=== PATIENT | female | born 1950 | race Caucasian/White ===

== ENCOUNTER → 2016-08-22 | Outpatient (CLI) | payer MEDICARE ==
[2013-08-04 09:14] VITALS: BP 118/63
[~2016-08-22] MED LIST: ACET650T89 PO; AZAT50TA PO; CYCL1DRO OP; GLIP2.5T4 PO; LISI2.5T PO; MELO7.5O PO; MULT-658 PO; PANT40TA5 PO; PILO5TAB16 PO; SITA100T PO; TRIA1CAP3 PO
--- NOTE | 2016-08-22 09:46 | KCIC ---
Indication: Acute renal failure. The right kidney measures 10.6 x 5.5 x 5.4 cm and the left kidney measures 10.7 x 4.3 x 4.9 cm. The cortical thickness and echogenicity is normal. No calculi are seen. There is no hydronephrosis. The aorta is nonaneurysmal. The IVC and bladder are unremarkable. Resistive indices are normal bilaterally measuring 0.7 on both the right and left. IMPRESSION: Unremarkable renal ultrasound. Electronically signed by: Kaleb Nunez MD (08/22/2016 9:43 AM) [id number]
== END | disposition home or self-care (01) ==
LOC: KCIC US 09:01
PROVIDERS: ATTEND Internal Medicine Nephrology
DX: N17.9 Acute kidney failure, unspecified (principal)
CPT/HCPCS: 76770

== ENCOUNTER → 2017-03-20 | Outpatient (CLI) | payer MEDICARE ==
[2017-03-20 09:09] LABS: ISTAT CREATININE 0.7 mg/dL (0.6-1.1)
[2017-03-20] MEDS: GADOBUTROL 10 MMOL/10 ML VIAL IV ×2 (09:41)
== END | disposition home or self-care (01) ==
LOC: KCIC MRI 08:38
DX: H53.2 Diplopia (principal)
CPT/HCPCS: 70553; 82565; A9585

== ENCOUNTER → 2017-04-25 | Outpatient (CLI) | payer MEDICARE | END | disposition home or self-care (01) | LOC: KCIC 08:11 | DX: M17.0 Bilateral primary osteoarthritis of knee (principal); M25.762 Osteophyte, left knee; M20.11 Hallux valgus (acquired), right foot; M47.892 Other spondylosis, cervical region; M53.82 Other specified dorsopathies, cervical region; M77.8 Other enthesopathies, not elsewhere classified | CPT/HCPCS: 72020; 72170; 73120; 73560; 73620 ==

== ENCOUNTER → 2017-05-23 | Outpatient (CLI) | payer MEDICARE | END | disposition home or self-care (01) | LOC: KCIC 12:26 | DX: J18.9 Pneumonia, unspecified organism (principal) | CPT/HCPCS: 71046 ==

== ENCOUNTER → 2018-01-26 | Outpatient (CLI) | payer MEDICARE ==
[2013-08-04 09:14] VITALS: BP 118/63
[~2018-01-26] MED LIST changes: +TOFA5TAB PO
--- NOTE | 2018-01-27 11:05 | KCIC ---
MR of the left knee Indication: Left knee pain, popping with position changes. Pain is progressing, just below the joint line and posterior. Comparison: None are available. Technique: The standard multiplanar sequences are obtained. FINDINGS: Artifact: Mild motion to moderate motion degradation. Medial meniscus: Degenerative tear Lateral meniscus: Posterior horn tear. Anterior cruciate ligament: Poorly visualized, to some degree may be due to the motion but a tear is still suspected. Lack of acute edema or Pivot shift bone injuries suggest this is not acute. Posterior cruciate ligament: Intact Medial collateral ligament: Intact. Lateral structures: * Iliotibial band: Intact. * Lateral collateral ligament: Intact. * Biceps femoris tendon: Intact * Popliteus tendon attachment: Intact Extensive mechanism: * Patellar tendon: Intact * Quadriceps tendon: Intact * Retinacular structures: Intact Fluid: Moderate joint effusion. No significant Ott's cyst. Intra-articular bodies: None visualized Joint compartments * patellofemoral joint: Moderate chondromalacia of the patella. * medial compartment: Moderate to severe chondral thinning. * lateral compartment: Mild chondromalacia. Bones: No significant lesion or acute fracture. Soft tissue: Unremarkable Impression: 1. Medial meniscal tear. 2. Lateral meniscal tear. 3. Poorly visualized anterior cruciate ligament, motion degradation may make visualization difficult, but a chronic tear is still suspected, particularly if there is clinical instability. Electronically signed by: Jerry Curry MD (01/27/2018 11:01 AM) [facility]-KCIC2
== END | disposition home or self-care (01) ==
LOC: KCIC MRI 16:38
PROVIDERS: ATTEND Nurse Practitioner Family
DX: S83.242A Other tear of medial meniscus, current injury, left knee, initial encounter (principal); S83.282A Other tear of lateral meniscus, current injury, left knee, initial encounter; M22.42 Chondromalacia patellae, left knee; M25.462 Effusion, left knee; X58.XXXA Exposure to other specified factors, initial encounter; Y93.89 Activity, other specified; Y92.89 Other specified places as the place of occurrence of the external cause; Y99.8 Other external cause status
CPT/HCPCS: 73721

== ENCOUNTER → 2018-06-12 | Outpatient (CLI) | payer MEDICARE ==
[2013-08-04 09:14] VITALS: BP 118/63
--- NOTE | 2018-06-12 10:11 | KCIC ---
Chest, PA and Lateral: Technique: PA and lateral views of the chest were obtained. History: Pneumonia. Comparison: 05/23/2017. Findings: The heart and pulmonary vasculature appear within normal limits. Linear left midlung zone atelectasis or infiltrate.. The pleural margins are clear. Mild degenerative changes thoracic spine. Impression: Minimal left lung midlung atelectasis or scarring similar to prior exam. Electronically signed by: Venkata Montez MD (06/12/2018 10:07 AM) [facility]
== END | disposition home or self-care (01) ==
LOC: KCIC 08:47
PROVIDERS: ATTEND Nurse Practitioner Family
DX: J18.9 Pneumonia, unspecified organism (principal); M47.814 Spondylosis without myelopathy or radiculopathy, thoracic region
CPT/HCPCS: 71046

== ENCOUNTER → 2019-03-18 | Outpatient (CLI) | payer MEDICARE ==
[2013-08-04 09:14] VITALS: BP 118/63
[~2019-03-18] MED LIST changes: -PANT40TA5 PO; +PANT40TA77 PO
--- NOTE | 2019-03-18 17:03 | KCIC ---
EXAM: Neck sonogram. HISTORY: Palpable lump within the left posterior inferior scalp. TECHNIQUE: Sonographic imaging of the scalp with the site of palpable concern was performed. COMPARISON: None. FINDINGS: There is no suspicious finding within the left scalp at the site of concern. IMPRESSION: No suspicious sonographic finding at the site of palpable concern. Cross-sectional imaging may be performed if there is concern for a sonographically occult lesion. Electronically signed by: Cyndi Michaud MD (03/18/2019 5:00 PM) [facility] [place]
== END | disposition home or self-care (01) ==
LOC: KCIC US 14:34
PROVIDERS: ATTEND Nurse Practitioner Family
DX: L72.8 Other follicular cysts of the skin and subcutaneous tissue (principal)
CPT/HCPCS: 76536

== ENCOUNTER 2019-12-18 17:17 | Emergency (ER) | payer MEDICARE ==
[~2019-12-18] VITALS: Ht 157.5 cm; Wt 108.1 kg
--- NOTE | 2019-12-18 18:20 | PHYS DOC ---
Past Medical History Past Medical History: Diabetes-Type II, GERD, Hypertension, Pneumonia, Other Additional Past Medical Histor: sepsis, rheumatoid arthritis Past Surgical History: Cholecystectomy, , Other Additional Past Surgical Histo: hernia repair x3 Smoking Status: Former Smoker Additional Information: quit smoking 2004 Alcohol Use: None General Adult EDM: Chief Complaint: HYPOTENSION HPI: HPI: Patient is a 69 year old female who arrives with a chief complaint of hypotension. Patient was recently admitted to this [facility] for pneumonia. Patient at that time had her blood pressure medications adjusted. Today after going to the bathroom she stood up and had a near syncope event. Patient was found to have low blood pressure. Patient feels much better now. Patient denies any pain at this time. Patient denies any fever, chills, vomiting or diarrhea or blood in her stool. Patient's cough is much improved. Review of Systems: Review of Systems: Constitutional: Denies fever or chills. [] Eyes: Denies change in visual acuity. [] HENT: Denies nasal congestion or sore throat. [] Respiratory: Denies cough or shortness of breath. [] Cardiovascular: Denies chest pain or edema. [] GI: Denies abdominal pain, nausea, vomiting, bloody stools or diarrhea. [] : Denies dysuria. [] Musculoskeletal: Denies back pain or joint pain. [] Integument: Denies rash. [] Neurologic: Denies headache, focal weakness or sensory changes. [] Endocrine: Denies polyuria or polydipsia. [] Lymphatic: Denies swollen glands. [] Psychiatric: Denies depression or anxiety. [] Heart Score: Risk Factors: Risk Factors: DM, Current or recent (<one month) smoker, HTN, HLP, family history of CAD, obesity. Risk Scores: Score 0 - 3: 2.5% MACE over next 6 weeks - Discharge Home Score 4 - 6: 20.3% MACE over next 6 weeks - Admit for Clinical Observation Score 7 - 10: 72.7% MACE over next 6 weeks - Early Invasive Strategies Current Medications: Current Medications Sodium Chloride 500 ml @ 500 mls/hr 1X ONCE IV Last administered on 12/18/19at 19:18; Start 12/18/19 at 19:15; Stop 12/18/19 at 20:14 Active Scripts Active Reported Xeljanz (Tofacitinib Citrate) 5 Mg Tablet 5 Mg PO Arthritis Pain (Acetaminophen) 650 Mg Tablet.er 650 Mg PO BID Restasis (Cyclosporine) 1 Each Droperette 1 Each OP BID Centrum Silver Tablet (Multivits-Min/Fa/Lycopene/Lut) 1 Each Tablet 1 Each PO DAILY08 Glipizide Er (Glipizide) 2.5 Mg Tab.er.24 2.5 Mg PO QID Januvia (Sitagliptin Phosphate) 100 Mg Tablet 100 Mg PO DAILY08 Lisinopril 2.5 Mg Tablet 2.5 Mg PO DAILY08 Pilocarpine Hcl 5 Mg Tablet 5 Mg PO TID Triamterene-Hctz 37.5-25 Mg Cp (Triamterene/Hydrochlorothiazid) 1 Each Capsule 2 Cap PO DAILY08 Pantoprazole Sodium 40 Mg Tablet.dr 40 Mg PO DAILY08 Meloxicam 7.5 Mg/5 Ml Oral.susp 7.5 Mg PO DAILY08 Azathioprine 50 Mg Tablet 50 Mg PO BID Allergies: Allergies: Allergies Coded Allergies Type Severity Reaction Last Updated Verified No Known Drug Allergies 12/18/19 No Physical Exam: PE: Constitutional: Well developed, well nourished, no acute distress, non-toxic appearance. [] HENT: Normocephalic, atraumatic, bilateral external ears normal, NO TRISMUS nose normal. [] Eyes: PERRLA, EOMI, conjunctiva normal, no discharge. [] Neck: Normal range of motion, no tenderness, supple, no stridor. [] Cardiovascular:Heart rate regular rhythm, PERIPHERAL PULSES INTACT Lungs & Thorax: Bilateral breath sounds clear, NO RESPIRATORY DISTRESS Abdomen:soft, no tenderness, no masses, no pulsatile masses. [] Skin: Warm, dry, no erythema, no rash. [] Back: No tenderness, no CVA tenderness. [] Extremities: No tenderness, no cyanosis, no clubbing, ROM intact, no edema. [] Neurologic: Alert and oriented X 3, normal motor function, normal sensory function, no focal deficits noted. [] Psychologic: Affect normal, judgement normal, mood normal. [] Current Patient Data: Labs: Laboratory Tests Test 12/18/19 18:20 White Blood Count 12.2 x10^3/uL Red Blood Count 4.49 x10^6/uL Hemoglobin 13.2 g/dL Hematocrit 40.3 % Mean Corpuscular Volume 90 fL Mean Corpuscular Hemoglobin 29 pg Mean Corpuscular Hemoglobin Concent 33 g/dL Red Cell Distribution Width 14.6 % Platelet Count 483 x10^3/uL Neutrophils (%) (Auto) 75 % Lymphocytes (%) (Auto) 15 % Monocytes (%) (Auto) 9 % Eosinophils (%) (Auto) 1 % Basophils (%) (Auto) 1 % Neutrophils # (Auto) 9.2 x10^3/uL Lymphocytes # (Auto) 1.8 x10^3/uL Monocytes # (Auto) 1.0 x10^3/uL Eosinophils # (Auto) 0.1 x10^3/uL Basophils # (Auto) 0.1 x10^3/uL Prothrombin Time 14.1 SEC Prothromb Time International Ratio 1.1 Activated Partial Thromboplast Time 27 SEC Sodium Level 133 mmol/L Potassium Level 4.4 mmol/L Chloride Level 98 mmol/L Carbon Dioxide Level 26 mmol/L Anion Gap 9 Blood Urea Nitrogen 40 mg/dL Creatinine 1.8 mg/dL Estimated GFR (Cockcroft-Gault) 27.9 BUN/Creatinine Ratio 22 Glucose Level 323 mg/dL Calcium Level 9.3 mg/dL Total Bilirubin 0.3 mg/dL Aspartate Amino Transf (AST/SGOT) 44 U/L Alanine Aminotransferase (ALT/SGPT) 58 U/L Alkaline Phosphatase 52 U/L Troponin I Quantitative < 0.017 ng/mL Total Protein 7.2 g/dL Albumin 3.0 g/dL Albumin/Globulin Ratio 0.7 Current Medications Medications (Trade) Dose Ordered Sig/Anam Route PRN Reason Start Time Stop Time Status Last Admin Dose Admin Sodium Chloride 500 ml @ 500 mls/hr 1X ONCE IV 12/18/19 19:15 12/18/19 20:14 12/18/19 19:18 Vital Signs: Vital Signs Date Time Temp Pulse Resp B/P (MAP) Pulse Ox O2 Delivery O2 Flow Rate FiO2 12/18/19 17:17 98.7 68 20 123/58 (79) 92 Room Air 98.7 EKG: EKG: EKG interpreted by me normal sinus rhythm with rate of 67 normal axis normal intervals normal ST segments [] Radiology/Procedures: Radiology/Procedures: [][facility] [address] [place] [address] IMAGING REPORT Signed PATIENT: URBAN RIVERA ACCOUNT: [id number] : 1950 LOCATION: ER AGE: 69 SEX: F EXAM STATUS: PRE ER ORD. PHYSICIAN: RAJEEV OTERO MD REASON: SYNCOPE 2 PROCEDURE: PORTABLE CHEST 1V EXAM: AP View of the chest DATE: 12/18/2019 6:02 PM INDICATION: Reason: SYNCOPE 2 / Spl. Instructions: / History: COMPARISON: 06/12/2018 FINDINGS: Heart is mildly enlarged. Aorta is tortuous with atherosclerotic calcifications. Linear opacities left midlung likely scarring/atelectasis, grossly unchanged. No pleural effusion or pneumothorax. IMPRESSION: 1. No radiographic evidence for acute cardiopulmonary process. Electronically signed by: Saman Zacarias MD (12/18/2019 6:38 PM) [facility] DICTATED and SIGNED BY: SAMAN ZACARIAS MD DATE: 12/18/19 183 Course & Med Decision Making: Course & Med Decision Making Pertinent Labs and Imaging studies reviewed. (See chart for details) [] 69-year-old female presents with near syncopal episode. Patient most likely had this episode due to recent change in blood pressure medicines and dehydration as she is got some acute minor renal insufficiency. Patient feels much better after fluids in the ER. Patient blood pressure stabilized. Patient feels like she is well enough and would like to go home. On reassessment she is clinically well and ambulates well. Taylor Disclaimer: Taylor Disclaimer: This electronic medical record was generated, in whole or in part, using a voice recognition dictation system. Departure Departure Impression: Primary Impression: Near syncope Disposition: 01 DC HOME SELF CARE/HOMELESS Condition: STABLE Referrals: SANA KIM APRN (PCP) 2-3 DAYS Patient Instructions: Syncope Additional Instructions: EMERGENCY DEPARTMENT GENERAL DISCHARGE INSTRUCTIONS THANK YOU for coming to [facility] Emergency Department (ED) today and trusting us with your care. We trust that you had a positive experience in our Emergency Department. If you wish to speak to the department Management you can contact the fire department marine engineer at . YOUR FOLLOW UP INSTRUCTIONS ARE FOLLOWS: Do you have a private doctor? If you do not have a private doctor, please ask for a resource list of physicians or clinics that may be able to assist you with follow up care. The Emergency Physician has interpreted your x-rays. The X-ray specialist will also review them. If there is a change in the findings you will be notified in 48 hours when at all possible. A lab test or lab culture may have been done, your results will be reviewed and you will be notified if you need a change in treatment. ADDITIONAL INSTRUCTIONS AND INFORMATION Your care today has been supervised by a physician who is specially trained in emergency care. Many problems require more than one evaluation for a complete diagnosis an d treatment. We recommend that you schedule your follow up appointment as recommended to ensure complete treatment of your illness or injury. If you are unable to obtain follow up care and continue to have a problem, or if your condition worsens we recommend that you return to the ED. We are not able to safely determine your condition over the phone nor are we able to give sound medical advice over the phone. For these safety reasons, if you call for medical advice we will ask you to come to the ED for further evaluation If you have any questions regarding these discharge instructions please call the ED at . SAFETY INFORMATION In the interest of safety, wellness, and injury prevention; we encourage you to wear your seatbelt, if you smoke; quit smoking, and we encourage your family to use protective helmet for bicycling and other sporting events that present an increased risk for head injury. IF YOUR SYMPTOMS WORSEN OR NEW SYMPTOMS DEVELOP, OR YOU HAVE CONCERNS ABOUT YOUR CONDITION; OR IF YOUR CONDITION WORSENS WHILE YOU ARE WAITING FOR YOUR FOLLOW UP APPOINTMENT; EITHER CONTACT YOUR PRIMARY CARE DOCTOR, THE PHYSICIAN WHOSE NAME AND NUMBER YOU WERE GIVEN, OR RETURN TO THE ED IMMEDIATELY. RAJEEV OTERO MD Dec 18, 2019 18:20
[2019-12-18 18:40] LABS: BASO # 0.1 x10^3/uL (0.0-0.2); BASO % 1 % (0-3); EOS # 0.1 x10^3/uL (0.0-0.7); EOS % 1 % (0-3); HEMATOCRIT 40.3 % (36.0-47.0); HEMOGLOBIN 13.2 g/dL (12.0-15.5); LYMPH # 1.8 x10^3/uL (1.0-4.8); LYMPH % 15 % (24-48); MEAN CORPUSCULAR HEMOGLOBIN 29 pg (25-35); MEAN CORPUSCULAR HGB CONC 33 g/dL (31-37); MEAN CORPUSCULAR VOLUME 90 fL (79-100); MONO % 9 % (0-9); NEUT # 9.2 x10^3/uL (1.8-7.7); NEUT % 75 % (31-73); PLATELET COUNT 483 x10^3/uL (140-400); RED BLOOD COUNT 4.49 x10^6/uL (3.50-5.40); RED CELL DISTRIBUTION WIDTH 14.6 % (11.5-14.5); WHITE BLOOD COUNT 12.2 x10^3/uL (4.0-11.0)
--- NOTE | 2019-12-18 18:41 | RAD ---
EXAM: AP View of the chest DATE: 12/18/2019 6:02 PM INDICATION: Reason: SYNCOPE 2 / Spl. Instructions: / History: COMPARISON: 06/12/2018 FINDINGS: Heart is mildly enlarged. Aorta is tortuous with atherosclerotic calcifications. Linear opacities left midlung likely scarring/atelectasis, grossly unchanged. No pleural effusion or pneumothorax. IMPRESSION: 1. No radiographic evidence for acute cardiopulmonary process. Electronically signed by: Saman Garcia MD (12/18/2019 6:38 PM) [facility]
--- NOTE | 2019-12-18 18:41 | EKG ---
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
[2019-12-18 18:42] LABS: CALCIUM 9.3 mg/dL (8.5-10.1); CREATININE 1.8 mg/dL (0.6-1.0); GFR 27.9; POTASSIUM 4.4 mmol/L (3.5-5.1)
[2019-12-18 18:46] LABS: PROTHROMBIN TIME PATIENT 14.1 SEC (11.7-14.0)
[2019-12-18 18:48] LABS: ALBUMIN/GLOBULIN RATIO 0.7 (1.0-1.7); TOTAL BILIRUBIN 0.3 mg/dL (0.2-1.0); TOTAL PROTEIN 7.2 g/dL (6.4-8.2)
[2019-12-18] MEDS ORDERED: IV NORMAL SALINE 500ML BAG 500 ML IV ONE (19:15)
[2019-12-18 20:15] VITALS: BP 125/55
== END 2019-12-18 20:23 | disposition home or self-care (01) ==
LOC: ER 17:17
DX: R55 Syncope and collapse (principal); I95.9 Hypotension, unspecified; E86.0 Dehydration; E11.9 Type 2 diabetes mellitus without complications; K21.9 Gastro-esophageal reflux disease without esophagitis; I10 Essential (primary) hypertension; Z90.49 Acquired absence of other specified parts of digestive tract; Z98.890 Other specified postprocedural states; Z87.891 Personal history of nicotine dependence
CPT/HCPCS: 36415; 71045; 80053; 84484; 85025; 85610; 85730; 93005; 96360; 99285; J7040

== ENCOUNTER → 2020-01-18 | Outpatient (CLI) | payer MEDICARE ==
--- NOTE | 2020-01-18 11:47 | KCIC ---
EXAM: CT CHEST WITHOUT CONTRAST HISTORY: Pneumonia COMPARISON: Chest radiograph 12/18/2019 TECHNIQUE: Helical CT of the chest performed without contrast. Coronal and sagittal reformats were obtained. One or more of the following individualized dose reduction techniques were utilized for this examination: 1. Automated exposure control 2. Adjustment of the mA and/or kV according to patient size 3. Use of iterative reconstruction technique. FINDINGS: Thyroid gland and thoracic inlet: Visualized portion of the right thyroid lobe is enlarged and heterogeneous with probable 2.5 cm hypodense lesion. This is incompletely visualized. Heart and great vessels: Heart is normal in size. There are coronary artery calcifications. No pleural effusion. The thoracic aorta is normal in caliber. Mild calcified aortic atherosclerosis. Mediastinum and nils: No mediastinal or hilar lymphadenopathy. Lungs and pleura: There is mild air trapping. There are a few cystic changes in the right apex. There is are scattered bandlike opacities in the perihilar regions and lower lobes, likely atelectasis. A linear subpleural bandlike opacity in the posterior right upper lobe adjacent to an old right rib fracture/deformity is likely scarring/atelectasis. 5 mm subpleural linear nodule in the posterior left apex. There is a 2.5 mm pulmonary nodule, posterior right middle lobe. No consolidation. No pleural effusion or pneumothorax. Chest wall and axillae: No axillary lymphadenopathy. Upper abdomen: There is hepatic steatosis. Bones: Old healed right posterior medial fourth rib fracture. Additional right posterior lateral rib fractures. No acute osseous abnormality. IMPRESSION: 1. Mild scattered linear opacities in the perihilar regions and lower lobes. This is likely atelectasis. Mild air trapping noted. 2. A few pulmonary nodules measuring up to 5 mm, nonspecific. In a high risk patient, optional follow-up CT could be obtained in 12 months. 3. Enlarged right thyroid lobe with multiple nodules, the largest measuring at least 2.5 cm. Recommend dedicated thyroid ultrasound to further evaluate. Electronically signed by: Claudia Prasad MD (01/18/2020 11:44 AM) [id number]
== END ==
LOC: KCIC CT 10:40
PROVIDERS: ATTEND Nurse Practitioner Family
DX: R91.1 Solitary pulmonary nodule (principal); E04.1 Nontoxic single thyroid nodule; J18.9 Pneumonia, unspecified organism; I25.10 Atherosclerotic heart disease of native coronary artery without angina pectoris
CPT/HCPCS: 71250

== ENCOUNTER → 2020-02-22 | Outpatient (CLI) | payer MEDICARE ==
--- NOTE | 2020-02-22 13:33 | RAD ---
Thyroid ultrasound without comparison for thyroid nodule. TECHNIQUE AND FINDINGS: Real-time grayscale and color Doppler evaluation of the thyroid gland is perf ormed. The right lobe measures 5.5 x 2.8 x 2.7 cm and the left measures 4.7 x 2.3 x 1.7 cm. Isthmus i s normal in size. Echotexture is heterogeneous. In the midpole the right thyroid gland, there is a cystic and solid mas s measuring 3.6 x 2.6 x 2.8 cm which is heterogeneous but predominantly isoechoic with a taller than wide profile, smooth margins, and no internal echogenic foci. This is a TR 2 lesion. In the left thyr oid lobe there are 2 subcentimeter hypoechoic abnormalities adjacent to one another in the mid substa nce, and there is mixed cystic and solid hypoechoic nodule which is wider than tall with indistinct m argins and no internal echogenic foci at the inferior pole measuring 1.5 x 1.3 x 0.8 cm. This is TR 3 lesion. IMPRESSION: 1. Multinodular thyroid as described. ACR TI-RADS 2017 Composition - cystic or completely cystic: Benign, no further score - spongiform: Benign, no further score - mixed cystic and Solid: 1 point - solid or almost completely solid: 2 points Echogenicity - anechoic: 0 points - hyper- or isoechoic: 1 point - hypoechoic: 2 points - very hypoechoic: 3 points Shape (assess on transverse plane) - wider than tall: 0 points - taller than wide: 3 points Margin - smooth: 0 points - ill-defined: 0 points - lobulated/irregular: 2 points - extra-thyroidal extension: 3 points Echogenic Foci - none: 0 points - large comet tail artifact: 1 point - peripheral/rim calcifications: 2 points - punctate echogenic foci: 3 points TR1 - 0-1 points; Benign TR2 - 2 points; Not Suspicious TR3 - 3 points; Mildly Suspicious; Follow-up at 1,3,5 years for >= 1.5cm and FNA for >=2.5cm TR4 - 4-6 points; Moderately Suspicious; Follow-up at 1,2,3,5 years for >= 1.0cm and FNA for >= 1.5cm TR5 - 7+ points; Highly Suspicous; Follow=up at 1,2,3,4,5 years for >= 0.5cm and FNA for >= 1.0cm Notes: Only score and report the Four highest scoring nodules. Significant interval enlargement on fo llow-uup is defined as >20% and > 2mm in two dimensions or > 50% increase in volume. If there are mul tiple nodules, the two with the highest ACR TI-RADS score should be sampled, rather than the two larg est. Electronically signed by: Clarence Angel MD (02/22/2020 1:30 PM) [id number]
== END ==
LOC: US 09:53
PROVIDERS: ATTEND Nurse Practitioner Family
DX: E04.2 Nontoxic multinodular goiter (principal)
CPT/HCPCS: 76536

== ENCOUNTER → 2020-08-08 | Outpatient (CLI) | payer MEDICARE ==
--- NOTE | 2020-08-08 15:11 | KCIC ---
EXAM: THYROID ULTRASOUND. HISTORY: Thyroid nodule. COMPARISON: 02/22/2020. FINDINGS: Sonographic evaluation of the thyroid gland was performed and evaluated using ACR TI-RADS c riteria. Right lobe: The right lobe measures 5.2 x 3.7 x 2.8 cm. The parenchyma is homogeneous. Nodule #1. Maximum size: 3.8 cm; Other 2 dimensions 2.6 x 2.7 cm. Location: mid pole. ACR TI-RADS risk category: TR2 (2 points): No fine-needle aspiration or follow-up required. Significant change in size (>= 20% in two dimensions and minimal increase of 2 mm): No. Change in features: No. Change in ACR TI-RADS risk category: No. Left lobe: The left lobe measures 5.5 x 2.2 x 1.6 cm. The parenchyma is homogeneous. Nodule #2. Maximum size: 1.5 cm; Other 2 dimensions 1.4 x 0.8 cm. Location: lower pole. ACR TI-RADS risk category: TR3 (3 points): FNA if 2.5 cm, follow-up if 1.5-2.4 cm in 1, 3, and 5 year s. Significant change in size (>= 20% in two dimensions and minimal increase of 2 mm): No. Change in features: No. Change in ACR TI-RADS risk category: No. Other smaller nodules on the left measure 8 mm or less and are likely stable. Isthmus: The isthmus is mildly thickened at 5.5 mm. Nodule #3. Maximum size: 0.9 cm; Other 2 dimensions 0.7 x 0.5 cm. Location: Right. ACR TI-RADS risk category: TR4 (4-6 points): FNA if 1.5 cm, follow-up if 1-1.4 cm in 1, 2, 3, and 5 y ears. Significant change in size (>= 20% in two dimensions and minimal increase of 2 mm): This was not dire ctly measured on the prior study, but there is no clear interval change. Change in features: No. Change in ACR TI-RADS risk category: No. IMPRESSION/RECOMMENDATION: 1. Multiple thyroid nodules measure up to TI-RADS 4. There is no suspicious interval change. Another follow-up is recommended in one year. Electronically signed by: Yue Dotson MD (08/08/2020 3:08 PM) [id number]
== END ==
LOC: KCIC US 10:11
PROVIDERS: ATTEND Nurse Practitioner Family
DX: E04.2 Nontoxic multinodular goiter (principal)
CPT/HCPCS: 76536

== ENCOUNTER → 2020-08-22 | Outpatient (CLI) | payer MEDICARE, OTHER ==
--- NOTE | 2020-08-22 10:49 | KCIC ---
EXAM: CT coronary artery calcium screening; radiologist over read. HISTORY: Benign hypertension. Coronary artery calcium screening. Dyslipidemia. Cigarette smoking. Brittany betes. TECHNIQUE: Computed tomographic images of the chest were obtained without contrast. Multiplanar refor matting was performed. *One or more of the following individualized dose reduction techniques were utilized for this examina tion: 1. Automated exposure control. 2. Adjustment of the mA and/or kV according to patient size. 3. Use of iterative reconstruction technique. COMPARISON: 01/18/2020. FINDINGS: The heart is mildly enlarged. There is calcified atherosclerotic plaque involving the coron sveta arteries and aorta. No pathologically enlarged lymph node is seen. There is no pneumothorax or pl eural effusion within the [id number]. There is anterior medial right middle lobe and lingular pleu ral parenchymal scarring. There is also bilateral basilar scarring and atelectasis. There is no acute finding involving the upper abdomen or osseous structures. Coronary artery calcium score: Left main artery - 0 Left anterior descending - 154.1 Left circumflex - 76.3 Right coronary artery - 243.1 TOTAL = 473.5 IMPRESSION: 1. Coronary artery calcium score of 473.5. There is a large amount of calcified atherosclerotic plaqu e. 2. Bilateral mid and lower lung pleural parenchymal scarring and atelectasis. Note is made that a 5 m m nodule within the left lung apex is excluded from the [id number]. Please refer to the prior CT r eport for follow-up recommendations. Electronically signed by: Cyndi Michaud MD (08/22/2020 10:46 AM) [id number]
== END ==
LOC: KCIC CT 09:41
PROVIDERS: ATTEND Nurse Practitioner Family
DX: I10 Essential (primary) hypertension (principal); I51.7 Cardiomegaly; I25.10 Atherosclerotic heart disease of native coronary artery without angina pectoris; E78.5 Hyperlipidemia, unspecified; I70.0 Atherosclerosis of aorta; J98.4 Other disorders of lung; J98.11 Atelectasis; R91.1 Solitary pulmonary nodule
CPT/HCPCS: 75571